=== PATIENT | female | born 1960 | race Caucasian/White ===

== ENCOUNTER → 2019-12-13 12:51 | Outpatient (CLI) | payer BC, SELFPAY ==
--- NOTE | ~2019-12-13 | MM_ITS ---
EXAMINATION: MM screening jayson BI w amol HISTORY: Screening TECHNIQUE: Craniocaudal and mediolateral oblique 3-D tomosynthesis images were obtained and synthetic 2-D images were generated. CAD analysis was submitted and interpreted. COMPARISON: Comparison to multiple prior studies sequentially, with oldest reviewed study dated 04/10. BREAST PARENCHYMAL COMPOSITION: The breasts are heterogeneously dense, which may obscure small masses . FINDINGS: There is no evidence of suspicious mass, calcification, or architectural distortion to sugg est malignancy in either breast. There has been no suspicious interval change. IMPRESSION: 1. No mammographic evidence of malignancy. 2. Recommend routine screening mammography in one year. BI-RADS Category 1: Negative Reviewed, dictated and finalized at location A.
== END ==
DX: Z12.31 Encounter for screening mammogram for malignant neoplasm of breast (principal)
CPT/HCPCS: 77063; 77067

== ENCOUNTER → 2021-01-17 07:18 | Outpatient (CLI) | payer BC, SELFPAY ==
--- NOTE | ~2021-01-17 | MM_ITS ---
EXAMINATION: MM screening jayson BI w amol HISTORY: Screening mammogram TECHNIQUE: Craniocaudal and mediolateral oblique 3-D tomosynthesis images were obtained and synthetic 2-D images were generated. CAD analysis was submitted and interpreted. COMPARISON: 12/2019, 07/23/2018, 06/29/2017 bilateral digital screening mammogram examinations BREAST PARENCHYMAL COMPOSITION: The breasts are heterogeneously dense, which may obscure small masses . FINDINGS: Bilateral stable benign appearing calcified probable fibroadenomas, lower inner quadrant of right breast and upper outer quadrant of left breast. There is no evidence of suspicious mass, calci fication, or architectural distortion to suggest malignancy in either breast. There has been no suspi cious interval change. IMPRESSION: 1. No mammographic evidence of malignancy. 2. Recommend routine screening mammography in one year. BI-RADS Category 2: Benign finding(s). Reviewed, dictated and finalized at location A.
== END ==
PROVIDERS: PCP Family Medicine Adolescent Medicine
DX: Z12.31 Encounter for screening mammogram for malignant neoplasm of breast (principal)
CPT/HCPCS: 77063; 77067

== ENCOUNTER 2022-03-26 08:46 | Outpatient (CLI) | payer BC, SELFPAY ==
--- NOTE | 2022-03-26 08:56 | EST_ITS ---
Patient Info Name: Glenna Ruth Age: 61 years : 1960 Gender: Female Ht: 64 in Wt: 165 lbs BSA: 1.86 m2 HR: 78 bpm BP: 134 / 78 mmHg Exam Date: 03/26/2022 9:59 AM Exam Location: [facility] Pulmonary Patient Status: Outpatient Admit Date: 03/26/2022 Staff Ordering Physician: Osman Saldana MD Dry House Operator: Gita Michael RDCS Attending Provider: DR. CASTRO Referring Physician: Shana SALDANA; Exercise Technologist: Lenin France RDCS, RT Exercise Physician: Se Castro DO Exam Type: CA stress echo Study Info Indications - chest discomfort upon walking Treadmill exercise stress echocardiogram is performed. Summary 1. 1. Negative Sage exercise stress test for ischemic ST changes by ECG criteria. 2. 2. Good functional capacity, achieving 7 METs of workload. 3. 3. Appropriate HR response to exercise. 4. 4. Appropriate HR recovery at 1 minute post exercise. 5. 5. Negative stress echocardiogram for ischemia by wall motion analysis. 6. 6. Patient informed of the above results. Stress Echo Findings Left Ventricle Appropriate increase in LV endocardial thickening with systole. Appropriate augmentation of contractility with systole. No wall motion abnormality. Left Ventricle Normal LV systolic function, no wall motion abnormality. Protocol: Sage Stress ECG Details Stage: REST Duration (min): 4 min : 29 sec Speed (mph): 0.0 Grade (%): 0 HR (bpm): 89 SBP (mmHg): 134 DBP (mmHg): 78 METS: --- Stage: REST Duration (min): 17 min : 24 sec Speed (mph): 0.0 Grade (%): 0 HR (bpm): 92 SBP (mmHg): 134 DBP (mmHg): 78 METS: --- Stage: STAGE 1 Duration (min): 1 min : 0 sec Speed (mph): 1.7 Grade (%): 10 HR (bpm): 114 SBP (mmHg): 134 DBP (mmHg): 78 METS: --- Stage: STAGE 1 Duration (min): 2 min : 0 sec Speed (mph): 1.7 Grade (%): 10 HR (bpm): 128 SBP (mmHg): 134 DBP (mmHg): 78 METS: --- Stage: STAGE 1 Duration (min): 3 min : 0 sec Speed (mph): 1.7 Grade (%): 10 HR (bpm): 138 SBP (mmHg): 178 DBP (mmHg): 87 METS: --- Stage: STAGE 2 Duration (min): 1 min : 0 sec Speed (mph): 2.5 Grade (%): 12 HR (bpm): 141 SBP (mmHg): 178 DBP (mmHg): 87 METS: --- Stage: STAGE 2 Duration (min): 2 min : 0 sec Speed (mph): 2.5 Grade (%): 12 HR (bpm): 144 SBP (mmHg): 179 DBP (mmHg): 87 METS: --- Stage: STAGE 2 Duration (min): 3 min : 0 sec Speed (mph): 0.0 Grade (%): 0 HR (bpm): 147 SBP (mmHg): 179 DBP (mmHg): 87 METS: --- Stage: STAGE 2 Duration (min): 3 min : 2 sec Speed (mph): 0.0 Grade (%): 0 HR (bpm): 147 SBP (mmHg): 179 DBP (mmHg): 87 METS: --- Stage: RECOVERY Duration (min): 0 min : 57 sec Speed (mph): 0.0 Grade (%): 0 HR (bpm): 123 SBP (mmHg): 161 DBP (mmHg): 86 METS: --- Stage: RECOVERY Duration (min):
== END 2022-03-26 08:47 | disposition home or self-care (01) ==
PROVIDERS: PCP Family Medicine Adolescent Medicine; Visit Provider Family Medicine Adolescent Medicine
DX: R07.9 Chest pain, unspecified (principal)
CPT/HCPCS: 93351

== ENCOUNTER → 2022-03-31 10:54 | Outpatient (CLI) | payer BC, SELFPAY ==
--- NOTE | ~2022-03-31 | MM_ITS ---
EXAMINATION: MM screening jayson BI w amol HISTORY: Screening mammogram TECHNIQUE: Craniocaudal and mediolateral oblique 3-D tomosynthesis images were obtained and synthetic 2-D images were generated. CAD analysis was submitted and interpreted. COMPARISON: 01/17/2021, 12/2019, 07/23/2018 bilateral screening mammogram examinations BREAST PARENCHYMAL COMPOSITION: The breasts are extremely dense, which lowers the sensitivity of mamm ography. 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 Occasional scattered punctate benign microcalcifications. There is no evidence of suspicious mass, calcification, or architectural distortion to suggest malignancy in eith er breast. There has been no suspicious interval change. IMPRESSION: 1. No mammographic evidence of malignancy. 2. Recommend routine screening mammography in one year. BI-RADS Category 2: Benign finding(s). Reviewed, dictated and finalized at location A. S REPRESENTATIVE [facility]
== END ==
PROVIDERS: PCP Family Medicine Adolescent Medicine; Visit Provider Family Medicine Adolescent Medicine
DX: Z12.31 Encounter for screening mammogram for malignant neoplasm of breast (principal)
CPT/HCPCS: 77063; 77067

== ENCOUNTER → 2023-05-29 12:49 | Outpatient (CLI) | payer BC, SELFPAY ==
--- NOTE | ~2023-05-29 | MM_ITS ---
EXAMINATION: MM screening jayson BI w amol HISTORY: Screening TECHNIQUE: Craniocaudal and mediolateral oblique 3-D tomosynthesis images were obtained and synthetic 2-D images were generated. CAD analysis was submitted and interpreted. COMPARISON: Comparison to multiple prior studies sequentially, with oldest reviewed study dated 07/2016. BREAST PARENCHYMAL COMPOSITION: The breasts are heterogeneously dense, which may obscure small masses . FINDINGS: There is no evidence of suspicious mass, calcification, or architectural distortion to sugg est malignancy in either breast. There has been no suspicious interval change. IMPRESSION: 1. No mammographic evidence of malignancy. 2. Recommend routine screening mammography in one year. BI-RADS Category 1: Negative Reviewed, dictated and finalized at location A. AN WORKER
== END ==
PROVIDERS: PCP Family Medicine Adolescent Medicine; Visit Provider Obstetrics & Gynecology
DX: Z12.31 Encounter for screening mammogram for malignant neoplasm of breast (principal)
CPT/HCPCS: 77063; 77067

== ENCOUNTER 2024-06-16 15:54 | Outpatient (CLI) | payer BC, SELFPAY ==
--- NOTE | ~2024-06-16 | MM_ITS ---
EXAMINATION: MM screening jayson BI w amol HISTORY: Screening mammogram TECHNIQUE: Craniocaudal and mediolateral oblique 3-D tomosynthesis images were obtained and synthetic 2-D images were generated. CAD analysis was submitted and interpreted. COMPARISON: 05/29/2023, 03/31/2022, 01/17/2021, 12/13/2019 BREAST PARENCHYMAL COMPOSITION:Dense: The breasts are extremely dense, which lowers the sensitivity o f mammography. FINDINGS: No suspicious mass, calcification, or architectural distortion are identified in either alejandro ast to suggest malignancy. There has been no suspicious interval change. IMPRESSION: No mammographic evidence of malignancy. Recommend routine screening mammography in one year. BI-RADS Category 1: Negative Reviewed, dictated and finalized at location . 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
== END 2024-06-16 15:55 | disposition home or self-care (01) ==
PROVIDERS: PCP Family Medicine Adolescent Medicine; Visit Provider Obstetrics & Gynecology
DX: Z12.31 Encounter for screening mammogram for malignant neoplasm of breast (principal)
CPT/HCPCS: 77063; 77067

== ENCOUNTER 2025-04-03 02:14 | Day surgery (SDC) | payer BC, SELFPAY ==
[2025-03-14 14:37] VITALS: BMI 29.2
--- OUTSIDE RECORDS SUMMARY | 2025-04-03 02:17 | XMS_ITS | Clinical Summary ---
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 Gender Identity Not on file Sexual Orientation Not on file Plan of Treatment Health Maintenance Due Date Last Done Comments Hepatitis C Virus (HCV) Screening 1960 TdaP Immunization 1960 Pap Smear 1983 Cervical Cancer Screening (CCS) 1992 HPV/Cotest 1992 Cologuard 2007 Immunochemical Fecal Occult Blood 2007 Pneumococcal Immunization (5 0+ years) (1 of 1 - PCV) 2012 Zoster Immunization (1 of 2) 2012 Influenza Immunization (#1) 2025 SARS-COV-2 Immunization ( - season) 2025 Colonoscopy 06/04/2025 06/04/2015 Colorectal Cancer Screening 06/04/2025 Respiratory Syncytial Virus (RSV) Immunization (Adult) (1 - 1-dose 75+ series) 2037 Hepatitis B Immunization Aged Out No longer eligible based on patient's age to complete this topic Human Papillomavirus (HPV) Immunization Aged Out No longer eligible b ased on patient's age to complete this topic Meningococcal Immunization (ACWY) Aged Out No longer eligible based on patient's age to complete this topic Rotavirus Immunization Aged Out No lo nger eligible based on patient's age to complete this topic Procedures Procedure Name Priority Date/Time Associated Diagnosis Comments COLONOSCOPY Routine 06/04/2015 from Last 3 Months or Most Recently Relevant to Health Maintenance Results * COLONOSCOPY (06/04/2015) Bruno Moss DO PROCEDURE/MINOR SURGICAL ORDERA BLES Final Result from Last 3 Months or Most Recently Relevant to Health Maintenance Care Teams Concrete Block Mason Relationship Specialty Start Date End Date Osman Saldana MD PCP - General Family Medicine 06/04/15 Bruno Moss DO Gastroenterology 06/04/15
--- OUTSIDE RECORDS SUMMARY | 2025-04-03 02:17 | XMS_ITS | Encounter Summary ---
Author Organization [facility] Address [address] [place] [address] Care Team Providers Care Unit Nurse Name Role Phone Unavailable Primary Care Provider Unavailabl e Encounter Details Date Type Department Care Team (Late st Contact Info) Description 05/21/2021 Lab Requisition [facility] DermPath Lab [address] [place] [id number] Regis Lr MD [address] [place] [address] Social History Tobacco Use Types Packs/Day Years Used Date Smoking Tobacco: Never Assessed Comments Unknown Sex and Gender Information Value Date Recorded Sex Assigned at Not on file Legal Sex Female 2:38 PM REMOTE ENCODING OPERATIONS SUPERVISOR Gender Identity Not on file Sexual Orientation Not on file documented as of this encounter Plan of Treatment Not on file documented as of this encounter Procedures Procedure Name Priority Date/Time Associated Diagnosis Comments DERMATOPATHOLOGY Routine 05/21/2021 12:0 0 AM REMOTE ENCODING OPERATIONS SUPERVISOR documented in this encounter Results * DERMATOPATHOLOGY (05/21/2021 12:00 AM REMOTE ENCODING OPERATIONS SUPERVISOR) Case Report Dermatopathology Report Case: [id number] Authorizing Provider: Regis Lr MD Collected: 05/21/2021 12:00 AM Ordering Location: [facility] Derm[facility] Lab Received: 05/21/2021 04:05 PM Pathologist: Kimmie Mon MD Specimen: Skin, left nasal ala 2 3:40 PM REMOTE ENCODING OPERATIONS SUPERVISOR DERMATOPATHOLOGY LABORATORY Final Diagnosis Specimen A. SKIN, left nasal ala: BASAL CELL CARCINOMA, NODULAR TYPE (C44.311) 2 3:40 PM REMOTE ENCODING OPERATIONS SUPERVISOR DERMATOPATHOLOGY LABORATORY at 1540 REMOTE ENCODING OPERATIONS SUPERVISOR Clinical History R/O BCC. 2 3:40 PM REMOTE ENCODING OPERATIONS SUPERVISOR DERMATOPATHOLOGY LABORATORY Gross Description Specimen A: Received is one formalin filled container labeled with the patient's name and designated left nasal ala. The specimen consists of a shave biopsy measuring [id number]. Jar 0. 2 3:40 PM REMOTE ENCODING OPERATIONS SUPERVISOR DERMATOPATHOLOGY LABORATORY Microscopic Description Specimen A. SKIN, left nasal ala: Within the dermis there are aggregates of basaloid cells with a high nuclear to cytoplasmic ratio and peripheral palisading. 2 3:40 PM REMOTE ENCODING OPERATIONS SUPERVISOR DERMATOPATHOLOGY LABORATORY Disclaimer An external and internal positive and negative controls are appropriate for the histochemical, immunohistochemical and immunofluorescence stain(s) in this case (if any), except where stated explicitly. The performance characteristics of the stain(s) cited in this report were developed and its performance characteristic determined by the Dermatopathology Laboratory at [facility], directed by Dr. Margarita Mon. These tests need not be, and therefore are not, approved by the [place] Food and Drug Administration. The tests are used for clinical purposes. Billing Codes Specimen Charges Stain Charges 31497 1 2 3:40 PM REMOTE ENCODING OPERATIONS SUPERVISOR DERMATOPATHOLOGY LABORATORY Embedded Images 2 3:40 PM REMOTE ENCODING OPERATIONS SUPERVISOR DERMATOPATHOLOGY LABORATORY Pathology/Cytolog y TISSUE SPECIMEN FROM SKIN / Unknown 05/21/2021 05/21/2021 4:05 PM REMOTE ENCODING OPERATIONS SUPERVISOR Regis Lr MD LAB - PATHOLOGY/CYTOLOGY ORDERAB LES Final Result DERMATOPATHOLOGY LABORATORY [facility] - Department of Dermatology [address] [place] [address], [facility] [[email or web address]] [phone] documented in this encounter Visit Diagnoses Not on filedocumented in this encounter
--- OUTSIDE RECORDS SUMMARY | 2025-04-03 02:17 | XMS_ITS | Clinical Summary ---
Author Organization [facility] Address [address] [place] [id number] Care Team Providers Care Chef Teacher Name Role Phone Unavailable Primary Care Provider Unavailabl e Source Comments [facility],non-owned Affiliates and Associated Physician Practices is amultiple site organization consisting of ambulatory clinics and hospital sitesin [place], [place], [place] and [place]. This disclosure is being madepursuant to the Care Everywhere program and may not contain all information available regarding this patient. Last updated 18.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 Gender Identity Not on file Sexual Orientation Not on file Plan of Treatment Health Maintenance Due Date Last Done Comments COLOGUARD (AGES 45-75) - COL ON CA SCREENING 1960 COLON MONITORING 1960 COLONOSCOPY - COLON CA SCREENING 1962 CT COLONOGRAPHY - COLON CA SCREENING 1960 Colorectal Cancer Screening 1960 FIT - COLON CA SCREENING 1960 FLEX SIG - COLON CA SCREENING 1960 LIPID TESTING 1960 MAMMOGRAM 1960 HIV SCREENING 1977 HEPATITIS C SCREENING 03/30/1980 DTAP/TDAP/TD VACCINES (1 - Tdap) 1981 PAP SMEAR 1983 Cervical Cancer Screening 1992 PAP with HPV 1992 PNEUMOCOCCAL VACCINE 50+ (1 of 1 - PCV) 2012 ZOSTER VACCINE (1 of 2) 2012 DEPRESSION SCREENING 05/11/2024 COVID-19 VACCINE ( - 2024-2 6 season) 2025 INFLUENZA VACCINE (#1) 2025 Respiratory Syncytial Virus (RSV) Vaccine Pt: or over 60 yrs (1 - 1-dose 75+ series) 2037 HEPATITIS B VACCINE Aged Out No longe r eligible based on patient's age to complete this topic HIB VACCINE Aged Out No longer eligi ble based on patient's age to complete this topic HPV VACCINE Aged Out No longer eligi ble based on patient's age to complete this topic MENINGOCOCCAL (Group B) VACC INE SHARED DECISION-MAKING Aged Out No longer eligibl e based on patient's age to complete this topic MENINGOCOCCAL GROUPS A/C/Y/W VACCINE Aged Out No longer eligible b ased on patient's age to complete this topic Insurance [facility] Address: [id number] [place] [address]
--- OUTSIDE RECORDS SUMMARY | 2025-04-03 02:17 | XMS_ITS | Clinical Summary ---
Author Organization [facility] Address [address] [place] [phone] Phone Care Team Providers Care Belt Loop Machine Operator Name Role Phone Osman Saldana MD Primary Care Provider [phone] Allergies Active Allergy Reactions Criticality Noted Date Comments Amoxicillin-Pot Clavulanate Unknown 01/12/20 20 Sulfa (Sulfonamide Antibiotics) Unknown 07/2019 Medications multivit with minerals/lutein (MULTIVITAMIN 50 PLUS ORAL) Take by mouth. Active Vit C-Vit W-Eubfeh-OlOt-L utein (PRESERVISION) 226-90-0.8-5 mg Capsule Take 1 Capsule by mouth daily. Active carbonyl iron (FEOSOL) 45 mg Tablet Take 45 mg by mouth daily. Active Active Problems No known active problems Encounters Date Type Department Care Team Description 03/28/2025 External Device Data STL ABSTRACTION Provider, Abstract 03/08/2025 External Device Data STL ABSTRACTION Provider, Abstract 03/07/2025 External Device Data STL ABSTRACTION Provider, Abstract from Last 3 Months Immunizations Immunization Administration Dates Next Due INFLUENZA VACCINE QUADRIVALE NT 6 MOS UP CELL DERIVED PF IM 02/13/2023 INFLUENZA VACCINE QUADRIVALE NT 6 MOS UP PF IM 02/17/2022 Influenza Seasonal Unspecifi ed Formulation IM 02/09/2024,02/13/2023,01/17/2021,2019 Family History Medical History Relation Name Comments Cancer Brother Clifton Ruth Hypertension Father Chin Small Stroke Father Chin Small Breast Cancer Paternal Aunt Cancer Sister 1 Karen Crum Cancer Sister 2 Shahnaz Amin Relation Name Status Comments Brother Clifton Ruth Alive Father Chin Small Paternal Aunt Sister 1 Karen Crum Alive Sister 2 Shahnaz Amin Alive Social History Tobacco Use Types Packs/Day Years Used Date Smoking Tobacco: Never Passive Smoke Exposure: Never Smokeless Tobacco: Never Tobacco Cessation:Counseling Given: Not Answered Alcohol Use Standard Drinks/Week Comments Yes 0 (1 standard drink = 0.6 oz pur e alcohol) Comments No Sex and Gender Information Value Date Recorded Sex Assigned at Not on file Legal Sex 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:56 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 Gender Identity Female 02/21/2024 7:35 PM CDT Sexual Orientation Not on file Last Filed Vital Signs Vital Sign Reading Time Taken Comments Blood Pressure 120/84 07/26/2024 4:01 PM CDT Pulse - - Temperature - - Respiratory Rate - - Oxygen Saturation - - Inhaled Oxygen Concentration - - Weight 77.4 kg (170 lb 9.6 oz) 07/26/2024 4:01 P M CDT Height 160 cm (5' 3) 07/26/2024 4:01 PM CDT Body Mass Index 30.22 07/26/2024 4:01 PM CDT Plan of Treatment Upcoming Encounters Date Type Department Care Team (Late st Contact Info) Description 08/01/2025 3:15 PM CDT Office Visit [facility] SCHOLARSHIP COUNSELOR - Medical [facility] [address] [facility] [address] [address] Kevon Botello MD [address] [facility] [address] [place] [phone] Health Maintenance Due Date Last Done Comments Pre-Diabetes and Diabetes Screening 1960 DTAP/TDAP/TD VACCINES (1 - Tdap) 1981 FIT-DNA Q 3 years 2007 Flex Sig/CT Colonography Q 5 years 2007 ZOSTER VACCINE (1 of 2) 2012 FIT/FOBT Q 1 year 01/18/2022 01/18/2021 INFLUENZA VACCINE (#1) 2024 , 02/13/2023, 02/13/2023, Additional history exists COLORECTAL SCREENING 06/04/2025 06/04/2015 Colorectal Cancer Screening 06/04/2025 BREAST CANCER SCREENING 06/16/2025 06/16/19 25, 05/29/2023, 01/17/2021, Additional history exists PAP SMEAR 07/27/2027 07/26/2024, 01/2024, 01/23/2022, Additional history exists CERVICAL CANCER SCREENING 07/26/2029 HPV/Cotest (21-29) 07/26/2029 07/26/2024, 0 05/19/2023, 01/23/2022, Additional history exists HPV/Cotest (30-65) 07/26/2029 07/26/2024, 0 05/19/2023, 01/23/2022, Additional history exists RSV VACCINE (60+ or ) (1 - 1-dose 75+ series) 2037 Procedures Procedure Name Priority Date/Time Associated Diagnosis Comments CERV/VAG CYTO SCREEN PAP RLFX HPV Routine 07/26/2024 4:23 PM CDT Encounter for gynecological examination with abnormal finding MAMMO 3D CHRISTOPHE SCREEN BILAT W OR WO CAD Routine 06/16/2024 Breast cancer screening by mammogram POC OCCULT BLOOD, IMMUNO, QUAL, STOOL Routine 01/18/2021 8:10 AM CDT Screening for malignant neoplasm of the rectum from Last 3 Months or Most Recently Relevant to Health Maintenance Results * CERV/VAG CYTO SCREEN PAP RLFX HPV (07/26/2024 4:23 PM CDT) CLINICAL INFORMATION Kathy Duarte Comment:None given LAST MENSTRUAL PERIOD Kathy Duarte Comment:NONE GIVEN PREV PAP: Kathy Duarte Comment:NONE GIVEN PREV BX: Kathy Duarte Comment:NONE GIVEN SOURCE Kathy Duarte Comment:Vagina ADEQUACY: Kathy Duarte Comment:SATISFACTORY FOR ITALO LUATION PAP INTERP Kathy Duarte Comment: Cytology Results: Negative for intraepithelial lesion or malignancy. COMMENT (PAP TEST) Q uloulou Duarte Comment: This Pap test has been evaluated with computer assisted technology. STOCK ROOM MANAGER: Beni Duarte Comment: FLY, CT(ASCP) CT screening location: [facility] [place] [address] EXPLANATORY NOTE [facility] Comment: EXPLANATORY NOTE: The Pap is a screening test for cervical cancer. It is not a diagnostic test and is subject to false negative and false positive results. It is most reliable when a satisfactory sample, regularly obtained, is submitted with relevant clinical findings and history, and when the Pap result is evaluated along with historic and current clinical information. Test Performed at: [email or web address] [address] [place] [address] GenevieveCheryl Pete Genital SPECIMEN FROM VAGINA / Unknown 07/26/2024 4:23 PM CDT 07/27/2024 2:33 AM CDT us Shady Zhou MD PATHOLOGY/CYTOLOGY ORDERABLE S Final Result [facility] [phone] [facility] [place] [address] [place] [address] * MAMMO 3D CHRISTOPHE SCREEN BILAT W OR WO CAD (06/16/2024) Anatomical Region Laterality Modality Breast Bilateral Mammography us Shady Zhou MD MAMMO ORDERABLES Final Resul t * POC OCCULT BLOOD, IMMUNO, QUAL, STOOL (01/18/2021 8:10 AM CDT) OCCULT BLOOD, IMMUNOASSAY POC Negative Negative [facility] SCHOLARSHIP COUNSELOR TOWER [address] INTERNAL KIT QC Pass Pass [facility] SCHOLARSHIP COUNSELOR [address]OWER [address] KIT LOT NUMBER POC [id number] [facility] SCHOLARSHIP COUNSELOR [address] KIT EXPIRATION DATE POC 11/07/22 [facility] SCHOLARSHIP COUNSELOR [address] Stool STOOL SPECIMEN / Unknown 01/18/2021 8:10 AM CDT us Shady Zhou MD POINT OF CARE TESTING Final Result [facility] SCHOLARSHIP COUNSELOR TOWER [address] CLIA# [id number] [address] [place] [address] from Last 3 Months or Most Recently Relevant to Health Maintenance Insurance [facility] OUT OF STATE Care Teams Belt Loop Machine Operator Relationship Specialty Start Date End Date Osman Saldana MD PCP - General Family Practice 01/10/20
--- OUTSIDE RECORDS SUMMARY | 2025-04-03 02:17 | XMS_ITS | Encounter Summary ---
Author Organization [facility] Address [address] [place] [address] Care Team Providers Care Manager Wastewater Name Role Phone Osman Saldana MD Primary Care Provider [phone] Encounter Details Date Type Department Care Team (Latest Contact Info) Description 12/10/2000 Inpatient Historical [facility] Biju Werner MD NO ADDRESS ON FILE Jose A Rand MD [address] [facility] [address] [place] [address] Benign neoplasm of breast (Primary Dx) Social History Tobacco Use Types Packs/Day Years Used Date Smoking Tobacco: Never Assessed Comments Unknown Sex and Gender Information Value Date Recorded Sex Assigned at Not on file Legal Sex Female 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 REFINING ENGINEER - Medical [place] [address] [facility] [address] [place] [phone] Kevon Botello MD [address] [facility] [address] [place] [phone] documented as of this encounter Visit Diagnoses Diagnosis Benign neoplasm of breast- Primary documented in this encounter Care Teams Manager Wastewater Relationship Specialty Start Date End Date Osman Saldana MD PCP - General Family Practice 01/10/20 documented as of this encounter
[2025-04-03 08:40] VITALS: BP 148/98; PULSE 98; RESP 18; TEMP 36.2; O2SAT 100
[2025-04-03] MEDS: LACTATED RINGERS 1,000 ML 150 ML IV CONT (08:49)
--- NOTE | 2025-04-03 08:54 | WPDANESEPPF ---
Anes - Initial Pre Proc Eval Procedure: Operation Date: 04/03/25 10:00 Proposed Procedures p Screening Colonoscopy - Jey Carrasco MD Date/Time: 04/03/25 08:54 Surgeon: Jey Carrasco MD Pre Op Diagnosis: Encounter for screening for malignant neoplasm of Patient Data Age: 64 Gender: F Height: 1.63 m Weight: 76.8 kg Last Vital Signs Temp 97.2 F L 04/03/25 08:40 Pulse 98 04/03/25 08:40 Resp 18 04/03/25 08:40 BP 148/98 H 04/03/25 08:40 Pulse Ox 100 04/03/25 08:40 O2 Del Method Room Air 04/03/25 08:40 Allergies Allergy/AdvReac Type Severity Reaction Status Date / Time amoxicillin Allergy Intermediate RASH Verified 04/03/25 08:39 clavulanic acid Allergy Intermediate RASH Verified 04/03/25 08:39 Sulfa (Sulfonamide Allergy Intermediate RASH Verified 04/03/25 08:39 Antibiotics) Home Medications ?Medication ?Instructions ?Recorded ?Confirmed ?Type iron, carbonyl 45 mg tablet 45 mg PO USEASDIRECTD 10/27/22 03/14/25 History (Feosol) mv-mn-folic 200 mcg-vit K 15 1 cap PO BID 10/27/22 03/14/25 History mcg-lutein 5 mg-zeaxanthin 1 mg capsule (PreserVision AREDS 2 Plus Multivit) Patient hx anesthesia problems: none Family hx anesthesia problems: none Results Review: All pre-operative results and documents have been reviewed as part of the pre-operative evaluation. [facility] Surgical History Surgical History History of hysterectomy with bilateral oophorectomy (04/2024) For fibroids Hx of cholecystectomy (1995) Family History Family History Father Cerebrovascular accident Social History Social History Smoking status: Never smoker Alcohol use details: rarely Substance use: never Substance use type: former substance user Lack of Transportation: No Lack of Food: Never True Current Housing: I Have Housing Concerned About Future Housing: No Difficulty Paying Gas/Electric Bills: No Difficulty Paying for Meds: No Currently Unemployed: No Education: Master's Degree or Higher Difficulty w/ Childcare or Family Care: No Living arrangements: alone Spiritual care concerns: No Anes - Eval Final PreProcedure Day of Procedure 04/03/25 08:54 Patient weight: overweight Lungs: normal air movement Airway: Mallampati scale class II Neurological: alert and oriented Last oral intake: >/= 8 hours ASA classification: I Emergent: no Anesthetic plan: proceed Anesthesia type and monitoring: general GIVS and standard monitoring Results Review: All pre-operative results and documents have been reviewed as part of the pre-operative evaluation. Pt active w workouts/cardio/wts, no cp or sob. Informed Consent: The patient's anesthetic plan and its attendant risks and benefits were discussed with the patient/family/POA. Questions were solicited and answers provided to the satisfaction of the patient/family/POA.
--- NOTE | 2025-04-03 09:16 | PM.IMHP ---
H&P: HPI History of Present Illness Date/Time: 04/03/25 09:16 Chief Complaint: Screening colonoscopy Narrative: This is the patient's 2nd screening colonoscopy. There are no GI symptoms and there is no family history of colorectal cancer. Review of Systems Review of Systems: All systems reviewed & are unremarkable except as noted in HPI and below [facility] Surgical History Surgical History History of hysterectomy with bilateral oophorectomy (04/2024) For fibroids Hx of cholecystectomy (1995) Family History Family History Father Cerebrovascular accident Social History Social History Smoking status: Never smoker Alcohol use details: rarely Substance use: never Substance use type: former substance user Lack of Transportation: No Lack of Food: Never True Current Housing: I Have Housing Concerned About Future Housing: No Difficulty Paying Gas/Electric Bills: No Difficulty Paying for Meds: No Currently Unemployed: No Education: Master's Degree or Higher Difficulty w/ Childcare or Family Care: No Living arrangements: alone Spiritual care concerns: No Meds Home Medications and Allergies Home Medications ?Medication ?Instructions ?Recorded ?Confirmed ?Type iron, carbonyl 45 mg tablet 45 mg PO USEASDIRECTD 10/27/22 03/14/25 History (Feosol) mv-mn-folic 200 mcg-vit K 15 1 cap PO BID 10/27/22 03/14/25 History mcg-lutein 5 mg-zeaxanthin 1 mg capsule (PreserVision AREDS 2 Plus Multivit) Allergies Allergy/AdvReac Type Severity Reaction Status Date / Time amoxicillin Allergy Intermediate RASH Verified 04/03/25 08:39 clavulanic acid Allergy Intermediate RASH Verified 04/03/25 08:39 Sulfa (Sulfonamide Allergy Intermediate RASH Verified 04/03/25 08:39 Antibiotics) Vital Signs Vital Signs - 24 hr 04/03/25 08:40 Temperature 97.2 F L Pulse Rate 98 Respiratory Rate 18 Blood Pressure 148/98 H Pulse Oximetry 100 Oxygen Delivery Room Air Exam Const: General: cooperative and healthy appearing Resp: Effort & Inspection: normal respiratory effort and able to speak in complete sentences Auscultation: clear to auscultation bilaterally Cardio: Rate: regular rate Rhythm: regular rhythm GI: Inspection: normal to inspection GI Palp: No No hepatosplenomegaly present Auscultation: normal bowel sounds Rectal Exam: deferred Skin: General skin exam: normal color Psych: Appearance: grossly normal Mental Status: mental status grossly normal Assessment and Plan Assessment and plan (1) Encounter for screening colonoscopy: Code(s): Z12.11 - Encounter for screening for malignant neoplasm of colon Status: Acute Assessment and Plan: The patient is deemed a good candidate for the procedure. Consent signed. Will proceed.
--- NOTE | 2025-04-03 09:35 | S_PTH ---
PATIENT: Glenna Ruth LOC: [facility] U#:[id number] AGE/SX: 64/F ROOM: RE04/03/[address]: Jey Carrasco MD : 1960 BED: DIS: 04/03/2025 SPEC #: [id number] RECD: 04/03/25 11:37 STATUS: MONCHO REQ #: [id number] DAPHNEY: 04/03/25 09:[address]: Jey Carrasco DEPT: [facility] Surgical RECD BY: Carlyn More ENTERED: 04/03/25 11:37 SP TYPE: Surgical OTHR DR: Osman Saldana MD Tissues: A - Colon Polypectomy Procedures: Hematoxylin and Eosin Stain Gross and Microscopic Level 4
[2025-04-03 09:39] VITALS: BP 111/74; PULSE 78; RESP 18; O2SAT 100
[2025-04-03 09:49] VITALS: BP 116/61; PULSE 70; RESP 16; O2SAT 100
[2025-04-03 09:59] VITALS: BP 124/73; PULSE 71; RESP 15; O2SAT 100
== END 2025-04-03 10:05 | disposition home or self-care (01) ==
PROVIDERS: PCP Family Medicine Adolescent Medicine; Visit Provider Internal Medicine Gastroenterology
PROC: 0DJD8ZZ Inspection of Lower Intestinal Tract, Via Natural or Artificial Opening Endoscopic (ICD-10-PCS; CPT 45378; principal; 2025-04-03 10:00)
DX: Z12.11 Encounter for screening for malignant neoplasm of colon (principal); K63.5 Polyp of colon
CPT/HCPCS: 45385; 88305; J2003; J2704; J7120

== ENCOUNTER → 2025-04-04 10:30 | Outpatient (CLI) | payer BC, SELFPAY ==
--- NOTE | ~2025-04-04 | XR_ITS ---
EXAMINATION: XR knee LT 3V, 04/04/2025 10:32 BABY SITTER HISTORY: M25.562 - Pain in left knee 3 weeks no injury COMPARISON: No comparisons available. Findings: No acute fracture or malalignment. Moderate degenerative changes of the patellofemoral joint, small effusion Soft tissues unremarkable. Impression: No acute fracture or malalignment. Reviewed, dictated and finalized at location P. SITTER Impression: No acute fracture or malalignment.
== END ==
LOC: EXPCRAD 10:33
PROVIDERS: PCP Nurse Practitioner Family; Visit Provider Nurse Practitioner Family
DX: M25.562 Pain in left knee (principal)
CPT/HCPCS: 73562

== ENCOUNTER 2025-04-05 20:14 | Emergency (ER) | payer BC, SELFPAY ==
[2025-04-05 20:18] VITALS: BP 153/72; PULSE 100; RESP 18; TEMP 36.5; O2SAT 97
--- OUTSIDE RECORDS SUMMARY | 2025-04-05 20:39 | XMS_ITS | Clinical Summary ---
Author Organization [facility] Address [address] [place] [address] Care Team Providers Care Health Safety Instructor Name Role Phone Unavailable Primary Care Provider Unavailabl e Source Comments [facility],non-owned Affiliates and Associated Physician Practices is amultiple site organization consisting of ambulatory clinics and hospital sitesin [place], [place], [place] and [place]. This disclosure is being madepursuant to the Care Everywhere program and may not contain all information available regarding this patient. 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
--- OUTSIDE RECORDS SUMMARY | 2025-04-05 20:39 | XMS_ITS | Encounter Summary ---
Author Organization [facility] Address [address] [place] [address] Care Team Providers Care State Auditor Name Role Phone Osman Saldana MD Primary Care Provider [phone]- [phone] Encounter Details Date Type Department Care Team (Latest Contact Info) Description 12/10/2000 Inpatient Historical [facility] Biju Werner MD NO ADDRESS ON FILE Jose A Rand MD [address] [facility] [address] [place] [address] Benign neoplasm of breast (Primary Dx) Social History Tobacco Use Types Packs/Day Years Used Date Smoking Tobacco: Never Assessed Comments Unknown Sex and Gender Information Value Date Recorded Sex Assigned at Not on file Legal Sex Female 2:56 AM HAND FLESHER Gender Identity Female 02/21/2024 7:35 PM CDT Sexual Orientation Not on file documented as of this encounter Plan of Treatment Upcoming Encounters Date Type Department Care Team (Late st Contact Info) Description 08/01/2025 3:15 PM CDT Office Visit [facility] COMMUNITY ENGAGEMENT MANAGER - Medical [place] [address] [facility] [address] [place] [phone] Kevon Botello MD [address] [facility] [address] [place] [phone] documented as of this encounter Visit Diagnoses Diagnosis Benign neoplasm of breast- Primary documented in this encounter Care Teams State Auditor Relationship Specialty Start Date End Date Osman Saldana MD PCP - General Family Practice 01/10/20 documented as of this encounter
--- OUTSIDE RECORDS SUMMARY | 2025-04-05 20:39 | XMS_ITS | Clinical Summary ---
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
--- OUTSIDE RECORDS SUMMARY | 2025-04-05 20:39 | XMS_ITS | Encounter Summary ---
Author Organization [facility] Address [address] [facility] [place] [address] Care Team Providers Care Night Guard Name Role Phone Unavailable Primary Care Provider Unavailabl e Encounter Details Date Type Department Care Team (Late st Contact Info) Description 05/21/2021 Lab Requisition [facility] [address] [place] [id number] Regis Lr MD [address] [place] [address] Social History Tobacco Use Types Packs/Day Years Used Date Smoking Tobacco: Never Assessed Comments Unknown Sex and Gender Information Value Date Recorded Sex Assigned at Not on file Legal Sex Female 2:38 PM LANGUAGE SPECIALIST Gender Identity Not on file Sexual Orientation Not on file documented as of this encounter Plan of Treatment Not on file documented as of this encounter Procedures Procedure Name Priority Date/Time Associated Diagnosis Comments DERMATOPATHOLOGY Routine 05/21/2021 12:0 0 AM LANGUAGE SPECIALIST documented in this encounter Results * DERMATOPATHOLOGY (05/21/2021 12:00 AM LANGUAGE SPECIALIST) Case Report Dermatopathology Report Case: [id number] Authorizing Provider: Regis Lr MD Collected: 05/21/2021 12:00 AM Ordering Location: [facility] Received: 05/21/2021 04:05 PM Pathologist: Kimmie Mon MD Specimen: Skin, left nasal ala 2 3:40 PM LANGUAGE SPECIALIST DERMATOPATHOLOGY LABORATORY Final Diagnosis Specimen A. SKIN, left nasal ala: BASAL CELL CARCINOMA, NODULAR TYPE (C44.311) 2 3:40 PM LANGUAGE SPECIALIST DERMATOPATHOLOGY LABORATORY at 1540 LANGUAGE SPECIALIST Clinical History R/O BCC. 2 3:40 PM LANGUAGE SPECIALIST DERMATOPATHOLOGY LABORATORY Gross Description Specimen A: Received is one formalin filled container labeled with the patient's name and designated left nasal ala. The specimen consists of a shave biopsy measuring [id number]. Jar 0. 2 3:40 PM LANGUAGE SPECIALIST DERMATOPATHOLOGY LABORATORY Microscopic Description Specimen A. SKIN, left nasal ala: Within the dermis there are aggregates of basaloid cells with a high nuclear to cytoplasmic ratio and peripheral palisading. 2 3:40 PM LANGUAGE SPECIALIST DERMATOPATHOLOGY LABORATORY Disclaimer An external and internal positive and negative controls are appropriate for the histochemical, immunohistochemical and immunofluorescence stain(s) in this case (if any), except where stated explicitly. The performance characteristics of the stain(s) cited in this report were developed and its performance characteristic determined by the Dermatopathology Laboratory at [facility], directed by Dr. Margarita Mon. These tests need not be, and therefore are not, approved by the [place] Food and Drug Administration. The tests are used for clinical purposes. Billing Codes Specimen Charges Stain Charges 45836 1 2 3:40 PM LANGUAGE SPECIALIST DERMATOPATHOLOGY LABORATORY Embedded Images 2 3:40 PM LANGUAGE SPECIALIST DERMATOPATHOLOGY LABORATORY Pathology/Cytolog y TISSUE SPECIMEN FROM SKIN / Unknown 05/21/2021 05/21/2021 4:05 PM LANGUAGE SPECIALIST Regis Lr MD LAB - PATHOLOGY/CYTOLOGY ORDERAB LES Final Result DERMATOPATHOLOGY LABORATORY [facility] - Department of Dermatology [address] [place] [address], [facility] [phone] documented in this encounter Visit Diagnoses Not on filedocumented in this encounter
--- NOTE | 2025-04-05 20:48 | ED.WOUNDLAC ---
HPI - Wound/Laceration General Chief Complaint: Wound/Laceration Stated Complaint: lac Time Seen by Provider: 04/05/25 20:31 History of Present Illness HPI narrative: 65-year-old otherwise healthy female presenting after small skin avulsion to her left finger tip while slicing bread. States that the bleeding is mostly. Now but was dripping blood prior to arrival. No blood thinner use. Some throbbing discomfort but no significant pain. No restricted range of motion or sensory loss. Tetanus is up-to-date within 5 years. Related Data Home Medications ?Medication ?Instructions ?Recorded ?Confirmed ?Last Taken ?Type mv-mn-folic 200 mcg-vit K 15 1 cap PO BID 10/27/22 04/04/25 Unknown History mcg-lutein 5 mg-zeaxanthin 1 mg capsule (PreserVision AREDS 2 Plus Multivit) Allergies Allergy/AdvReac Type Severity Reaction Status Date / Time amoxicillin Allergy Intermediate RASH Verified 04/04/25 09:51 clavulanic acid Allergy Intermediate RASH Verified 04/04/25 09:51 Sulfa (Sulfonamide Allergy Intermediate RASH Verified 04/04/25 09:51 Antibiotics) Review of Systems Review of Systems: As reviewed above in HPI All systems reviewed & are unremarkable except as noted in HPI and below PMFSH Surgical History Surgical History History of hysterectomy with bilateral oophorectomy (04/2024) For fibroids Hx of cholecystectomy (1995) Family History Family History Father Cerebrovascular accident Social History Social History Smoking status: Never smoker Alcohol use details: rarely Substance use: never Substance use type: former substance user Lack of Transportation: No Lack of Food: Never True Current Housing: I Have Housing Concerned About Future Housing: No Difficulty Paying Gas/Electric Bills: No Difficulty Paying for Meds: No Currently Unemployed: No Education: Master's Degree or Higher Difficulty w/ Childcare or Family Care: No Living arrangements: alone Spiritual care concerns: No Exam Narrative: GENERAL: Well-appearing, no distress HEAD: Normocephalic EYES: PERRLA ENT: Nares clear, no rhinorrhea or epistaxis. Mucous membranes moist. NECK: Supple. CHEST: Symmetric chest rise, no respiratory distress HEART: Regular rate and rhythm, good cap refill of digits EXTREMITIES: Normal range of motion. SKIN: Small finger tip avulsion to the distal left thumb, no active bleeding. No tenderness to palpation. Good cap refill and sensation. NEURO: Alert and oriented x3 Course Vital Signs Vital signs: Vital Signs Temperature 36.5 C 04/05/25 20:18 Pulse Rate 100 04/05/25 20:18 Respiratory Rate 18 04/05/25 20:18 Blood Pressure 153/72 H 04/05/25 20:18 Pulse Oximetry 97 04/05/25 20:18 Oxygen Delivery Room Air 04/05/25 20:18 Temperature 36.5 C 04/05/25 20:18 Pulse Rate 100 04/05/25 20:18 Respiratory Rate 18 04/05/25 20:18 Blood Pressure 153/72 H 04/05/25 20:18 Pulse Oximetry 97 04/05/25 20:18 Oxygen Delivery Room Air 04/05/25 20:18 Procedures Laceration Laceration 1: Date: 04/05/25 Time: 20:45 Site: hand (left thumb distal tip) Side (If applicable): left Size (cm): 0.1 Description: flap and clean Depth: simple, single layer Local Anesthetic: none Pre-repair: wound explored, irrigated and deep structures intact ====== Skin Level ====== Skin layer closed with: dermabond ====== Subcutaneous Layer ====== ====== Muscle Layer ====== ====== Tendon Layer ====== Dressing: Bandage applied MDM - Wound/Laceration MDM Narrative Medical decision making narrative: 65-year-old otherwise healthy female presenting after small skin avulsion to her left finger tip while slicing bread. States that the bleeding is mostly controlled now but was dripping blood prior to arrival. No blood thinner use. Some throbbing discomfort but no significant pain. No restricted range of motion or sensory loss. Tetanus is up-to-date within 5 years. Exam reassuring. Dermabond used for closure. Safe for discharge with return precautions. Discharge Plan Discharge Clinical Impression: Avulsion, finger tip Patient Disposition: Home Condition: Stable Instructions: Antibiotic Form, Skin Adhesive Care (ED) Additional Instructions: Keep the area covered for 12-24 hours and prevent water exposure as the matrix for the liquid adhesive cures over this period. The skin adhesive will flake off as a scab in about 5 days, do not forcibly rip up as it can reopen the wound. Return with any recurrent bleeding or active signs of infection. Otherwise Tylenol and ibuprofen for pain control and return with any emergencies. Patient Language: Macedonian Prescriptions: No Action PreserVision AREDS 2 Plus MV 200 mcg-15 mcg- 5 mg-1 mg capsule 1 cap PO BID prednisone 10 mg tablet 10 mg PO DIRECTED 6 Days Qty: 6 0RF Rx Instructions: see taper instructions: 6 tabs x 1 day, 5 tabs x 1 day, 4 tabs x 1, 3 tabs x1 day, 2tabsx 1 day, 1 tabs x 1 day Follow-up/Referrals: Elizabeth Gifford APRN [Primary Care Provider, [facility]] Time of Disposition: 20:48
== END 2025-04-05 20:59 | disposition home or self-care (01) ==
PROVIDERS: Emergency Provider Student in an Organized Health Care Education/Training Program; PCP Nurse Practitioner Family
DX: S61.002A Unspecified open wound of left thumb without damage to nail, initial encounter (principal); Z90.49 Acquired absence of other specified parts of digestive tract; Z90.710 Acquired absence of both cervix and uterus; Z90.722 Acquired absence of ovaries, bilateral; W26.9XXA Contact with unspecified sharp object(s), initial encounter; Y93.G1 Activity, food preparation and clean up
CPT/HCPCS: 12001; 99282